=== PATIENT | female | born 1980 | race Caucasian/White ===

== ENCOUNTER 2022-07-19 17:50 | Emergency (ER) | payer MEDICAID, SELFPAY ==
[2022-07-19 17:58] VITALS: BP 170/90; PULSE 66; RESP 18; TEMP 36.4; O2SAT 100; BMI 38.4
--- NOTE | 2022-07-19 19:15 | ED_ITS ---
HPI - Extremity Injury (Upper) General Chief Complaint: Extremity Pain/Injury, Upper Stated Complaint: L knee pain, hand injury Time Seen by Provider: 07/19/22 18:03 History of Present Illness HPI narrative: 42-year-old woman presenting to the emergency department with approximately 1 we ek of increasing left forearm area pain. She notes pain in the lateral elbow area and seems to radiate up and down the forearm into the 3rd finger. She does not report any particular trauma. I do inquire further about what work she has been doing or different activities and does endorse doing a lot of pressure washing beginning about 2 weeks ago. She is left-hand dominant. Ibuprofen does take a little bit of the edge off. Any movement really seems to cause pain. Hard to find a comfortable position. Sleep has been poor due to pain. Review of records notes a history of low back pain. She later mentions that has had some left knee discomfort as well and some swelling noting bucket-handle u-shaped meniscal tear is what it sounds like. Has had effusion drained it appears in the past. This is a minor complaint upon presentation today. Related Data Previous Rx's Medication Instructions Recorded hydrocodone 5 mg-acetaminophen 325 1 - 2 tab PO Q4-6H PRN pain #10 07/19/22 mg tablet tabs prednisone 20 mg tablet See Rx Instructions .Route 07/19/22 .COMPLEX #18 tabs Allergies Allergy/AdvReac Type Severity Reaction Status Date / Time adhesive tape Allergy Mild Rash Verified 07/19/22 18:02 Review of Systems Status of ROS: Reports: 6 or more systems reviewed and unremarkable except as noted in History and below PFSH PFS Social History 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: Heavy tobacco smoker What tobacco products do you use: cigarettes Smoking packs per day: 1 Smoking cigarettes per day: 20.0 Years smoked: 30 Smoking pack-years: 30.00 Do you use any of these nicotine containing products: None Second hand tobacco smoke exposure: No How often do you have a drink containing alcohol: never AUDIT-C Alcohol total score: 0 Non-prescribed substance use: marijuana (any form) service: No Exam Narrative: Exam Narrative: Favoring the left arm. Seems uncomfortable. Breathing easily. Not demonstrating excessively in pain. Neck is supple. No apparent discomfort to rotation of shoulder in observation. Examination of the elbow is without swelling. No medial epicondylar tenderness. No ulnar groove area tenderness. Significant tenderness to palpation frankly pain, over the lateral epicondyle and distally into the extensor muscles. Pain is elicited with opening her hand. 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 Intact sensation and good pulses peripherally. Resisted supination causes a great deal of pain. Const: Vital Signs, click to edit/add: Vital Signs - 24 hr 07/19/22 17:58 Temperature 97.6 F Pulse Rate [Pulse Oximeter] 66 Respiratory Rate 18 Blood Pressure [Ri t Upper Arm] 170/90 H Pulse Oximetry 100 Oxygen Delivery Me thod Room Air Documenting provider has reviewed patient's vital signs: yes Course Vital Signs Vital signs: Initial Vital Signs Temperature 97.6 F 07/19/22 17:58 Temperature Source Temporal Artery Scan 07/19/22 17:58 Pulse Rate 66 07/19/22 17:58 Respiratory Rate 18 07/19/22 17:58 Blood Pressure 170/90 H 07/19/22 17:58 Blood Pressure Mean 116 H 07/19/22 17:58 Blood Pressure Position Sitting 07/19/22 17:58 Pulse Oximetry 100 07/19/22 17:58 Oxygen Delivery Method Room Air 07/19/22 17:58 Vital Signs Temperature 97.6 F 07/19/22 17:58 Pulse Rate 66 07/19/22 17:58 Respiratory Rate 18 07/19/22 17:58 Blood Pressure 170/90 H 07/19/22 17:58 Pulse Oximetry 100 07/19/22 17:58 Oxygen Delivery Method Room Air 07/19/22 17:58 Temperature 97.6 F 07/19/22 17:58 Pulse Rate 66 07/19/22 17:58 Respiratory Rate 18 07/19/22 17:58 Blood Pressure 170/90 H 07/19/22 17:58 Pulse Oximetry 100 07/19/22 17:58 Oxygen Delivery Method Room Air 07/19/22 17:58 MDM - Extremity Injury (Upper) MDM Narrative Medical decision making narrative: On physical exam appears clear that has lateral epicondylitis. Without more traumatic event and not sure warrants imaging i.e. for avulsion. Discussed outpatient management. She would appreciate pain medicine for departure when I discuss options. Place in arm sling for comfort. See patient discharge plan. Due to restriction to a particular pharmacy medications are rewritten for that pharmacy. No recent concerning prescriptions upon [facility] Medical Records Attestation: I reviewed the patient's medical records. Discharge Plan Discharge Clinical Impression: Epicondylitis, lateral Patient Disposition: Home, Self-Care Condition: Stable Additional Instructions: Just because it hurts to move your arm, maybe you would be helped by wearing this arm sling for support and partly to be reminded not to move your arm too much, over this next week. Generally I would avoid grasping or lifting anything more than 3, maybe 5 lb. over this next week. Please call to your primary care provider to be seen sometime this next week. Might need to modify some work restrictions or get moving toward physical therapy. Prescription for forearm strap. I would wear this regularly over the next week or 2, at least any time you might be trying to use your arm. See printout on exercises/rehabilitation. 11 Tennis Elbow Exercises For Physical Therapy & Pain Relief (https_[employer]) read://[email or web address]%[email or web address]-[email or web address] -exercises-[email or web address] had a little trouble printing above -- can search this yourself. My colleague is recommending the Peña Pro for rehabilitation. I am not sure about coverage on this and it seems somewhat expensive but maybe some use ones are out there. It looks to me like a sort of TENS unit. Can discuss this further with your primary care provider. As I said might benefit from physical therapy. Sometimes steroid injections are helpful. You could also follow-up with Orthopedics. Phone number [phone] norco and Prednisone from [employer]. Otherwise as baseline would take up to 800 mg of ibuprofen 3 times a day with a little food or alternative to that would be up to 500 mg naproxen 2 times daily also maybe with a little food. Take the prednisone as 60 mg daily for 3 days, then 40 mg daily for 4 days, then 20 mg daily for 2 days. Prescriptions: New prednisone 20 mg tablet See Rx Instructions .ROUTE .COMPLEX Qty: 18 0RF Rx Instructions: Take 60 mg daily days 1 - 3, 40 mg days 4 - 6, 20 mg days 7 - 9 hydrocodone-acetaminophen 5-325 mg tablet 1 - 2 tab PO Q4-6H PRN (Reason: pain) Qty: 10 0RF Stand Alone Forms: [facility] Info Instructions
== END 2022-07-19 19:00 | disposition home or self-care (01) ==
PROVIDERS: Emergency Provider Family Medicine; PCP Physician Assistant
DX: M77.12 Lateral epicondylitis, left elbow (principal)
CPT/HCPCS: 99283

== ENCOUNTER 2022-09-24 11:34 | Emergency (ER) | payer MEDICAID, SELFPAY ==
[2022-09-24 11:37] VITALS: BP 171/117; PULSE 65; RESP 18; TEMP 36.9; O2SAT 97; BMI 35.4
--- NOTE | 2022-09-24 11:45 | ED.GENADULT ---
HPI - General Adult General Chief complaint: Extremity Pain/Injury, Upper Stated complaint: Left hand injury Time Seen by Provider: 09/24/22 11:38 History of Present Illness HPI narrative: Shanika is a 42 year white female who was doing a lot a lifting with her left hand, has had pain in her hand. She describes it in her wrist and in her volar surface of her hand. She has had no trauma significantly that would break a bone or have other abnormality in that regard. No fevers chills no redness or warmth. Patient has a complex medical history including chronic pain syndrome insomnia major depression COPD and a history of chemical dependency Related Data Home Medications Medication Instructions Recorded Confirmed sertraline 100 mg tablet 100 mg PO QDAY 09/15/22 09/15/22 Previous Rx's Medication Instructions Recorded albuterol sulfate 90 mcg/actuation 2 puff inhalation QID PRN 08/29/22 aerosol inhaler shortness of breath or wheezing #8.5 grams fluticasone 250 mcg-salmeterol 50 1 inh inhalation BID #60 ea 08/29/22 mcg/dose blistr powdr for inhalation (Advair Diskus) gabapentin 300 mg capsule 300 mg PO TID #90 caps 08/29/22 oxybutynin chloride 10 mg 10 mg PO QDAY #30 tabs 08/29/22 tablet,extended release 24 hr trazodone 150 mg tablet 150 mg PO QHS #30 tabs 08/29/22 ketorolac 10 mg tablet 10 mg PO Q8H PRN pain #10 tabs 09/24/22 methylprednisolone 4 mg tablets in See Rx Instructions PO .COMPLEX 09/24/22 a dose pack (Medrol (Raffy)) #21 ea Allergies Allergy/AdvReac Type Severity Reaction Status Date / Time nitrofurantoin Allergy Severe Swelling Verified 09/24/22 11:37 [From Macrobid] of Lip/Tongue/Throat adhesive tape Allergy Mild Rash Verified 09/24/22 11:37 [facility] Medical History (Updated 09/24/22 @ 11:49 by Aftab Brock MD) History of abnormal cervical Pap smear (07/13/20) ?Z87.42 - Personal history of other diseases of the female genital tract (ICD-10) Chronic constipation ?K59.09 - Other constipation (ICD-10) Seasonal allergies ?J30.2 - Other seasonal allergic rhinitis (ICD-10) Anxiety ?F41.9 - Anxiety disorder, unspecified (ICD-10) Thyroid nodule ?E04.1 - Nontoxic single thyroid nodule (ICD-10) History of kidney stones ?Z87.442 - Personal history of urinary calculi (ICD-10) Chronic pain syndrome ?G89.4 - Chronic pain syndrome (ICD-10) Insomnia ?G47.00 - Insomnia, unspecified (ICD-10) Overactive bladder ?N32.81 - Overactive bladder (ICD-10) History of drug overdose ?Z91.89 - Other specified personal risk factors, not elsewhere classified (ICD-10) History of methamphetamine abuse ?F15.11 - Other stimulant abuse, in remission (ICD-10) Major depression, recurrent ?F33.9 - Major depressive disorder, recurrent, unspecified (ICD-10) COPD (chronic obstructive pulmonary disease) ?J44.9 - Chronic obstructive pulmonary disease, unspecified (ICD-10) Surgical History (Updated 09/08/22 @ 15:36 by Keisha Azul) History of appendectomy ?Z90.49 - Acquired absence of other specified parts of digestive tract (ICD-10) History of female sterilization ?Z98.890 - Other specified postprocedural states (ICD-10) History of hysterectomy (08/10/20) ?Z90.710 - Acquired absence of both cervix and uterus (ICD-10) History of bladder surgery (01/01/20) ?Z98.890 - Other specified postprocedural states (ICD-10) Hx of total hip arthroplasty ?Z96.649 - Presence of unspecified artificial hip joint (ICD-10) Family History (Updated 09/08/22 @ 13:26 by Keisha Azul) Mother Rheumatoid arthritis High blood pressure Ovarian cancer, Onset Age: 45 Psychiatric disorder Sister Diabetes Hypothyroidism Ovarian cancer Asthma Breast cancer, Onset Age: 38 Psychiatric disorder Thyroid disease Social History (Updated 08/29/22 @ 00:11 by Jorge Alberto Mora MD) 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: , 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, 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, 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 What tobacco products do you use: cigarettes Smoking packs per day: 1 Smoking cigarettes per day: 20.0 Years smoked: 30 Smoking pack-years: 30.00 Do you use any of these nicotine containing products: None Second hand tobacco smoke exposure: No How often do you have a drink containing alcohol: never AUDIT-C Alcohol total score: 0 Non-prescribed substance use: marijuana (any form) Little interest or pleasure in doing things: several days Feeling down, depressed, or hopeless: more than half the days service: No Exam Narrative: Exam Narrative: Objective: Patient's vital signs look unremarkable other than she has elevated blood pressure This will be repeated Left hand shows limited range of motion due to just generalized discomfort. No point tenderness, no redness or warmth erythema distal CMS appears intact, she is peers have a small ganglion her anterior lateral wrist. Const: Vital Signs, click to edit/add: Vital Signs - 24 hr 09/24/22 11:37 Temperature 98.5 F Pulse Rate [Right Pulse Oximeter] 65 Respiratory Rate 18 Blood Pressure [Ri ght Upper Arm] 171/117 H Pulse Oximetry 97 Oxygen Delivery Me thod Room Air Course Vital Signs Vital signs: Initial Vital Signs Temperature 98.5 F 09/24/22 11:37 Temperature Source Temporal Artery Scan 09/24/22 11:37 Pulse Rate 65 09/24/22 11:37 Pulse Rhythm Regular 09/24/22 11:37 Pulse Strength 3+ Normal 09/24/22 11:37 Respiratory Rate 18 09/24/22 11:37 Blood Pressure 171/117 H 09/24/22 11:37 Blood Pressure Mean 135 H 09/24/22 11:37 Blood Pressure Position Sitting 09/24/22 11:37 Pulse Oximetry 97 09/24/22 11:37 Oxygen Delivery Method Room Air 09/24/22 11:37 Vital Signs Temperature 98.5 F 09/24/22 11:37 Pulse Rate 65 09/24/22 11:37 Respiratory Rate 18 09/24/22 11:37 Blood Pressure 171/117 H 09/24/22 11:37 Pulse Oximetry 97 09/24/22 11:37 Oxygen Delivery Method Room Air 09/24/22 11:37 Temperature 98.5 F 09/24/22 11:37 Pulse Rate 65 09/24/22 11:37 Respiratory Rate 18 09/24/22 11:37 Blood Pressure 171/117 H 09/24/22 11:37 Pulse Oximetry 97 09/24/22 11:37 Oxygen Delivery Method Room Air 09/24/22 11:37 Medical Decision Making MDM Narrative Medical decision making narrative: Patient has left wrist and hand pain, I think this is from overuse, she reports she has had some trigger finger issues in the past. At this point I will give her Toradol orally and continue that at home, would also give her Medrol Dosepak I think that will help significantly. Will also give her a wrist splint long that will involve the forearm as well. Light activity, ice on a regular basis, follow-up with primary care in 2-3 days, return here sooner problems or concerns. Discharge Plan Discharge Clinical Impression: Hand pain, left Patient Disposition: Home, Self-Care Condition: Stable Additional Instructions: Ice aggressively perhaps 10 minutes on the wrist 3 to 5 times a day, wear the wrist splint daily and at night in a loose fashion to keep the wrist from bending, take the medications prescribed, follow-up with primary care doctor in next 2-3 days to make sure it is improving. Prescriptions: New ketorolac 10 mg tablet 10 mg PO Q8H PRN (Reason: pain) Qty: 10 0RF methylprednisolone [Medrol (Raffy)] 4 mg tablets,dose pack See Rx Instructions .ROUTE .COMPLEX Qty: 21 0RF Rx Instructions: orally per package directions No Action fluticasone propion-salmeterol [Advair Diskus] 250-50 mcg/dose blister with device 1 inh inhalation BID Qty: 60 2RF albuterol sulfate 90 mcg/actuation HFA aerosol inhaler 2 puff inhalation QID PRN (Reason: shortness of breath or wheezing) Qty: 8.5 5RF oxybutynin chloride 10 mg tablet extended release 24hr 10 mg PO QDAY Qty: 30 2RF trazodone 150 mg tablet 150 mg PO QHS Qty: 30 2RF gabapentin 300 mg capsule 300 mg PO TID Qty: 90 1RF sertraline 100 mg tablet 100 mg PO QDAY Follow Up/Referrals: Jorge Alberto Mora MD [Primary Care Provider] - Stand Alone Forms: [employer] Info Instructions
== END 2022-09-24 12:11 | disposition home or self-care (01) ==
LOC: ED 11:57
PROVIDERS: Emergency Provider Family Medicine; PCP Family Medicine
DX: M25.532 Pain in left wrist (principal); M70.842 Other soft tissue disorders related to use, overuse and pressure, left hand
CPT/HCPCS: 29125; 99283

== ENCOUNTER 2022-11-02 09:30 | Outpatient (CLI) | payer MEDICAID, SELFPAY | END 2022-11-02 09:31 | disposition home or self-care (01) | LOC: NFLDREF 16:59 | PROVIDERS: PCP Family Medicine; Referring Provider Family Medicine; Visit Provider Family Medicine | DX: R30.0 Dysuria (principal); R10.9 Unspecified abdominal pain; N39.0 Urinary tract infection, site not specified; K21.9 Gastro-esophageal reflux disease without esophagitis | CPT/HCPCS: 81015; 87086; 87186 ==

== ENCOUNTER 2022-11-02 10:20 | Outpatient (CLI) | payer MEDICAID, SELFPAY ==
--- NOTE | 2022-11-02 11:30 | CRLHL7_ITS ---
For Patients: As a result of the Century Cures Act, medical imaging exams and procedure reports are released immediately into your electronic medical record. You may view this report before your referring provider. If you have questions, please contact your health care provider. Indication: ABDOMINAL PAIN. POSSIBLE KIDNEY OR GALLSTONE Technique: Noncontrast CT abdomen and pelvis Please note that all CT scans at this facility use dose modulation, iterative reconstruction, and/or weight-based dosing when appropriate to reduce radiation dose to as low as reasonably achievable. Comparison: None Findings: 2.3 cm bleb within the right lung base. No pleural effusion. No free intraperitoneal air. Right total hip replacement hardware. Punctate stones are present within the kidneys bilaterally measuring up to 3 millimeters. No perinephric stranding. Normal ureters. Normal noncontrast enhanced liver. Gallbladder is incompletely distended. Spleen is normal. Normal adrenal glands and pancreas. Mild atherosclerotic changes. No aneurysm. No bladder stones. No pelvic soft tissue mass. Degenerative disc disease L5-S1 with disc space narrowing and spurring along with discogenic sclerosis and vacuum disc phenomenon. Impression: Numerous punctate stones within each kidney measuring up to 3 millimeters. No hydronephrosis or perinephric stranding. Normal ureters and bladder. Please note that all CT scans at this facility use dose modulation, iterative reconstruction, and/or weight-based dosing when appropriate to reduce radiation dose to as low as reasonably achievable. Dictated by Jorge Alberto Faith MD @ 11/02/2022 3:53:05 PM (Electronically Signed)
== END 2022-11-02 10:21 | disposition home or self-care (01) ==
PROVIDERS: PCP Family Medicine; Visit Provider Family Medicine
DX: R10.9 Unspecified abdominal pain (principal); N20.0 Calculus of kidney
CPT/HCPCS: 74176

== ENCOUNTER 2022-11-07 12:52 | Emergency (ER) | payer MEDICAID, SELFPAY ==
[2022-11-07 13:15] VITALS: BP 174/105; PULSE 58; RESP 20; TEMP 36.2; O2SAT 100; BMI 32.5
[2022-11-07 13:42] LABS: Appearance Urine Clear (Clear); Bilirubin Urine Negative (Negative); Blood Urine 3+ (Negative); Color Urine Yellow (Yellow); Glucose Urine Negative (Negative); Ketones Urine Negative (Negative); Leukocyte Esterase Urine Negative (Negative); Nitrite Urine Negative (Negative); Protein Urine Negative (Negative); Urobilinogen Urine 0.2 (0.2-1.0)
[2022-11-07 13:49] LABS: Squamous Epithelial Cell Urine Few (None-Few); WBC Urine 0-2 (0-5)
--- NOTE | 2022-11-07 16:15 | ED.GENADULT ---
HPI - General Adult General Chief complaint: Abdominal Pain Stated complaint: severe abdominal pain Time Seen by Provider: 11/07/22 16:14 History of Present Illness HPI narrative: Pt seen in clinic last Monday. CT scan done and dx'd with UTI. Pain medication no longer helping. LEFT kidney pain and right upper quadrant pain. States kidney and gallbladder problems. Diarrhea x 1 week. 42-year-old woman presenting to the emergency department with complaint of continued left flank area pain and continued right upper abdominal pain. Was diagnosed with a urinary tract infection on clinic evaluation and a given a week of ciprofloxacin. Admittedly she is no longer having dysuria but she says that her kidney should not still hurt. It is just persistent. She has also had continued right upper quadrant pain. Says she tries to eat anything she gets a lot of pain. Can not handle any oral ingestion. Nausea but can vomit. No longer has a fever but apparently did get up to [address] scan a week ago documented numerous punctate kidney stones and no evidence of pyelonephritis. Urine culture grew out pansensitive E coli. She has also had a week of diarrhea. Says she was given Oxy something for pain. Says that it does not really help and just makes her sleepy and she does not really like it. Imaging did not show ureteral stone By the time I am seeing Ms. Farrell home urinalysis been resulted showing 3+ blood and 5-10 red cells on microscopic no other indication of infection. Related Data Home Medications Medication Instructions Recorded Confirmed sertraline 100 mg tablet 100 mg PO QDAY 09/15/22 11/07/22 Previous Rx's Medication Instructions Recorded albuterol sulfate 90 mcg/actuation 2 puff inhalation QID PRN 08/29/22 aerosol inhaler shortness of breath or wheezing #8.5 grams fluticasone 250 mcg-salmeterol 50 1 inh inhalation BID #60 ea 08/29/22 mcg/dose blistr powdr for inhalation (Advair Diskus) gabapentin 300 mg capsule 300 mg PO TID #90 caps 08/29/22 oxybutynin chloride 10 mg 10 mg PO QDAY #30 tabs 08/29/22 tablet,extended release 24 hr trazodone 150 mg tablet 150 mg PO QHS #30 tabs 08/29/22 ciprofloxacin HCl 500 mg tablet 500 mg PO BID #14 tabs 11/02/22 omeprazole 20 mg capsule,delayed 20 mg PO QDAY #30 caps 11/02/22 release oxycodone 5 mg tablet 5 mg PO TID PRN pain #20 tabs 11/02/22 Allergies Allergy/AdvReac Type Severity Reaction Status Date / Time nitrofurantoin Allergy Severe Swelling Verified 11/07/22 13:21 [From Macrobid] of Lip/Tongue/Throat adhesive tape Allergy Mild Rash Verified 11/07/22 13:21 Review of Systems Status of ROS: Reports: 6 or more systems reviewed and unremarkable except as noted in History and below [facility] Medical History GERD (gastroesophageal reflux disease) ?K21.9 - Gastro-esophageal reflux disease without esophagitis (ICD-10) History of abnormal cervical Pap smear (07/13/20) ?Z87.42 - Personal history of other diseases of the female genital tract (ICD-10) Chronic constipation ?K59.09 - Other constipation (ICD-10) Seasonal allergies ?J30.2 - Other seasonal allergic rhinitis (ICD-10) Anxiety ?F41.9 - Anxiety disorder, unspecified (ICD-10) Thyroid nodule ?E04.1 - Nontoxic single thyroid nodule (ICD-10) History of kidney stones ?Z87.442 - Personal history of urinary calculi (ICD-10) Chronic pain syndrome ?G89.4 - Chronic pain syndrome (ICD-10) Insomnia ?G47.00 - Insomnia, unspecified (ICD-10) Overactive bladder ?N32.81 - Overactive bladder (ICD-10) History of drug overdose ?Z91.89 - Other specified personal risk factors, not elsewhere classified (ICD-10) History of methamphetamine abuse ?F15.11 - Other stimulant abuse, in remission (ICD-10) Major depression, recurrent ?F33.9 - Major depressive disorder, recurrent, unspecified (ICD-10) COPD (chronic obstructive pulmonary disease) ?J44.9 - Chronic obstructive pulmonary disease, unspecified (ICD-10) Surgical History History of appendectomy ?Z90.49 - Acquired absence of other specified parts of digestive tract (ICD-10) History of female sterilization ?Z98.890 - Other specified postprocedural states (ICD-10) History of hysterectomy (08/10/20) ?Z90.710 - Acquired absence of both cervix and uterus (ICD-10) History of bladder surgery (01/01/20) ?Z98.890 - Other specified postprocedural states (ICD-10) Hx of total hip arthroplasty ?Z96.649 - Presence of unspecified artificial hip joint (ICD-10) Family History Mother Rheumatoid arthritis High blood pressure Ovarian cancer, Onset Age: 45 Psychiatric disorder Sister Diabetes Hypothyroidism Ovarian cancer Asthma Breast cancer, Onset Age: 38 Psychiatric disorder Thyroid disease 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: , 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, 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 Grayish skin. Curled up had fallen asleep. Overweight. Larger stature. Lungs with diffuse squeaks and crepitus consistent with diagnosis of COPD. She is not in any respiratory distress. Heart in a regular rate and rhythm. Examination of the abdomen is with severe apparent pain to palpation the right upper abdomen. It not really Lennon's positive. The left flank to light touch also with demonstrative response indicating severe pain. Skin otherwise is warm and dry without rashes. Extremities are without edema. Well-perfused. Const: Vital Signs, click to edit/add: Vital Signs - 24 hr 11/07/22 13:15 Temperature 97.1 F L Pulse Rate [Pulse Oximeter] 58 L Respiratory Rate 20 Blood Pressure [Ri ght Upper Arm] 174/105 H Pulse Oximetry 100 Oxygen Delivery Me thod Room Air Documenting provider has reviewed patient's vital signs: yes Course Vital Signs Vital signs: Initial Vital Signs Temperature 97.1 F L 11/07/22 13:15 Temperature Source Temporal Artery Scan 11/07/22 13:15 Pulse Rate 58 L 11/07/22 13:15 Pulse Rhythm Regular 11/07/22 13:15 Pulse Strength 3+ Normal 11/07/22 13:15 Respiratory Rate 20 11/07/22 13:15 Blood Pressure 174/105 H 11/07/22 13:15 Blood Pressure Mean 128 H 11/07/22 13:15 Blood Pressure Position Sitting 11/07/22 13:15 Pulse Oximetry 100 11/07/22 13:15 Oxygen Delivery Method Room Air 11/07/22 13:15 Vital Signs Temperature 97.1 F L 11/07/22 13:15 Pulse Rate 58 L 11/07/22 13:15 Respiratory Rate 20 11/07/22 13:15 Blood Pressure 174/105 H 11/07/22 13:15 Pulse Oximetry 100 11/07/22 13:15 Oxygen Delivery Method Room Air 11/07/22 13:15 Temperature 97.1 F L 11/07/22 13:15 Pulse Rate 58 L 11/07/22 13:15 Respiratory Rate 20 11/07/22 13:15 Blood Pressure 174/105 H 11/07/22 13:15 Pulse Oximetry 100 11/07/22 13:15 Oxygen Delivery Method Room Air 11/07/22 13:15 Medical Decision Making MDM Narrative Medical decision making narrative: At this point be prudent I think to examine for gallbladder/hepatitic disease. could certainly be an aseptic cystitis. underlying history of chronic pain concerns complicating. Could be passing a kidney stone. Initiating IV fluids. Given ketorolac and Zofran. Was able to sleep in the emergency department. CRP was somewhat elevated. Urinalysis with some blood but no other evidence of infection. White count is slightly elevated. Overall improved and would like to return home. Perhaps there is some residual inflammation since infection. Perhaps vomiting has contributed to some upper abdominal pain generally. She does have numerous punctate kidney stones; perhaps 1 of these has passed. See patient discharge plan Lab Data Lab results reviewed: Yes I reviewed the patient's lab results Labs: Lab Results 11/07/22 11/07/22 Range/Units 13:24 17:39 WBC 11.80 H (4.50-11.00) K/uL RBC 5.16 (4.00-5.20) m/uL Hgb 15.3 (12.0-16.0) gm/dL Hct 46.7 (33.0-51.0) % MCV 91 (80-100) fL MCH 30 (26-34) pg MCHC 33 (32-36) gm/dL RDW Coeff of Alexander 13.7 (11.5-15.5) % Plt Count 392 (140-440) K/uL Neut % (Auto) 58.7 (42.0-72.0) % Lymph % (Auto) 31.6 (20-44) % Stevens % (Auto) 5.0 (0.0-11.0) % Eos % (Auto) 4.0 (0.0-7.0) % Baso % (Auto) 0.4 (0.0-3.0) % Neut # (Auto) 6.90 (1.7-7.0) K/uL Lymph # (Auto) 3.70 H (0.90-2.90) K/uL Stevens # (Auto) 0.60 (0.00-0.90) K/UL Eos # (Auto) 0.50 (0.00-0.50) K/uL Baso # (Auto) 0.00 (0.00-0.30) K/uL Abs Immat Gran (auto) 0.00 (0.00-0.30) K/uL Imm/Tot Granulo (auto) 0.3 % Sodium 140 (135-149) mmol/L Potassium 3.5 L (3.6-5.1) mmol/L Chloride 103 (96-114) mmol/L Carbon Dioxide 31 (20-32) mmol/L BUN 8 (5-24) mg/dL Creatinine 0.8 (0.5-1.5) mg/dL Estimated Creat Clear 95.74 Estimated GFR 94 ml/min Glucose 93 (60-115) mg/dL Lactate 1.1 (0.5-1.9) mmol/L Calcium 8.9 (8.4-10.6) mg/dL Total Bilirubin 0.4 (0.1-1.5) mg/dL Direct Bilirubin 0.1 (0.0-0.5) mg/dL AST 19 (12-35) U/L ALT 15 (4-35) U/L Alkaline Phosphatase 73 (40-150) U/L C-Reactive Protein 3.3 H (0.5-1.0) mg/dL Total Protein 7.7 (6.0-8.3) g/dL Albumin 4.1 (3.3-5.0) g/dL Lipase 81 (23-300) U/L Urine Color Yellow (Yellow) Urine Appearance Clear (Clear) Urine pH 7.0 (5.0-8.5) Ur Specific Granby 1.020 (1.000-1.030) Urine Protein Negative (Negative) Urine Glucose (UA) Negative (Negative) Urine Ketones Negative (Negative) Urine Blood 3+ A (Negative) Urine Nitrite Negative (Negative) Urine Bilirubin Negative (Negative) Urine Urobilinogen 0.2 (0.2-1.0) Ur Leukocyte Esterase Negative (Negative) Urine RBC 5-10 A (0-2) Urine WBC 0-2 (0-5) Ur Squamous Epith Cells Few (None-Few) Urine Bacteria None (None) Discharge Plan Discharge Clinical Impression: Right upper quadrant abdominal pain, Hematuria, Flank pain Patient Disposition: Home w/ Parent or Adult Condition: Improved Additional Instructions: It is certainly possible you're passing a tiny kidney stone. I am not sure the cause of your right upper quadrant pain. Your labs are reassuring in this regard. Focus on hydration with water. Might even strain your urine over this next week. Can take ketorolac from [facility]. Phenazopyridine (AZO) might also be helpful. Either can be combined with the oxycodone you have remaining. Be seen for pain lasting 5 days, uncontrolled pain, associated fever, intractable vomiting. Prescriptions: No Action fluticasone propion-salmeterol [Advair Diskus] 250-50 mcg/dose blister with device 1 inh inhalation BID Qty: 60 2RF albuterol sulfate 90 mcg/actuation HFA aerosol inhaler 2 puff inhalation QID PRN (Reason: shortness of breath or wheezing) Qty: 8.5 5RF oxybutynin chloride 10 mg tablet extended release 24hr 10 mg PO QDAY Qty: 30 2RF trazodone 150 mg tablet 150 mg PO QHS Qty: 30 2RF gabapentin 300 mg capsule 300 mg PO TID Qty: 90 1RF sertraline 100 mg tablet 100 mg PO QDAY ciprofloxacin HCl 500 mg tablet 500 mg PO BID Qty: 14 0RF oxycodone 5 mg tablet 5 mg PO TID PRN (Reason: pain) Qty: 20 0RF omeprazole 20 mg capsule,delayed release(DR/EC) 20 mg PO QDAY Qty: 30 5RF Follow Up/Referrals: Jorge Alberto Mora MD [Primary Care Provider] - Stand Alone Forms: Clear Standards Info Instructions
--- NOTE | 2022-11-07 17:27 | CRLHL7_ITS ---
For Patients: As a result of the Century Cures Act, medical imaging exams and procedure reports are released immediately into your electronic medical record. You may view this report before your referring provider. If you have questions, please contact your health care provider. Indication: Abdominal pain. History of kidney stones. Technique: Sonography of the abdomen was performed limited to the structures discussed below Comparison: Portions of a CT dated November 02, 2022. No prior ultrasounds for comparison. Findings: The liver measures 18.3 centimeters. There is no focal mass or biliary ductal dilation. Echogenicity is overall normal. Gallbladder wall thickness is normal. No sludge, calculus or pericholecystic fluid collection. The gallbladder wall is 2.5 millimeters which is normal The common duct measures 4 millimeters which is normal The pancreas as visualized appears normal. Portions are obscured by bowel gas. The aorta and cava appear normal. The right kidney measures 12.3 x 5.0 x 4.9 centimeters and the left kidney measures 12.5 x 6.4 x 6.6 centimeters. No hydronephrosis, mass or perinephric collection. The stones present on the CT are not well demonstrated on the ultrasound. Impression: 1. The gallbladder appears normal. No intra or extrahepatic biliary ductal dilation. The liver is mildly enlarged but otherwise unremarkable. 2. Normal appearing pancreas. 3. Kidneys normal in size. No hydronephrosis or mass. The small calculi visible on the CT are poorly demonstrated by sonography Dictated by Agapito Mcdonald MD @ 11/07/2022 6:42:58 PM (Electronically Signed)
[2022-11-07] MEDS: 0.9 % SODIUM CHLORIDE 1000 ml 1,000 ML IV (17:42)
[2022-11-07] MEDS: KETOROLAC 30 MG/ML inj IVP (17:43)
[2022-11-07] MEDS: ONDANSETRON 2 MG/ML inj 4 MG IVP (17:43)
[2022-11-07 17:54] LABS: Lactate* 1.1 mmol/L (0.5-1.9)
[2022-11-07 17:56] LABS: Basophils Percent Auto 0.4 % (0.0-3.0); Hematocrit 46.7 % (33.0-51.0); Hemoglobin* 15.3 gm/dL (12.0-16.0); Immature Granulocytes Pct Auto 0.3 %; Lymphocytes Percent Auto 31.6 % (20-44); Mean Corpuscular HGB Conc 33 gm/dL (32-36); Mean Corpuscular Hemoglobin 30 pg (26-34); Mean Corpuscular Volume 91 fL (80-100); Neutrophils Percent Auto 58.7 % (42.0-72.0); Platelet Count* 392 K/uL (140-440); RDW Coefficient of Variation % 13.7 % (11.5-15.5); Red Blood Count 5.16 m/uL (4.00-5.20)
[2022-11-07 17:58] LABS: Slide Review Reflex No
[2022-11-07 18:09] LABS: Albumin* 4.1 g/dL (3.3-5.0)
[2022-11-07 18:10] LABS: Chloride* 103 mmol/L (96-114); Potassium* 3.5 mmol/L (3.6-5.1); Sodium* 140 mmol/L (135-149)
[2022-11-07 18:12] LABS: Alkaline Phosphatase* 73 U/L (40-150); Aspartate Amino Transferase* 19 U/L (12-35); Bilirubin Direct* 0.1 mg/dL (0.0-0.5); Bilirubin Total* 0.4 mg/dL (0.1-1.5); Lipase* 81 U/L (23-300); Total Protein* 7.7 g/dL (6.0-8.3)
[2022-11-07 18:13] LABS: Alanine Aminotransferase* 15 U/L (4-35); Creatinine* 0.8 mg/dL (0.5-1.5); Est. Creatinine Clearance* 95.74; Estimated Glomerular Filt Rate 94 ml/min
[2022-11-07 18:14] LABS: Blood Urea Nitrogen* 8 mg/dL (5-24); Calcium* 8.9 mg/dL (8.4-10.6); Carbon Dioxide* 31 mmol/L (20-32); Glucose* 93 mg/dL (60-115)
[2022-11-07 18:17] LABS: C Reactive Protein* 3.3 mg/dL (0.5-1.0)
== END 2022-11-07 20:45 | disposition home or self-care (01) ==
PROVIDERS: Emergency Provider Family Medicine; PCP Family Medicine
DX: R10.11 Right upper quadrant pain (principal)
CPT/HCPCS: 36415; 76700; 80048; 80076; 81003; 81015; 83605; 83690; 85025; 86140; 96361; 96374; 96375; 99284; J1885; J2405; J7030

== ENCOUNTER 2023-02-07 13:39 | Outpatient (CLI) | payer MEDICAID, SELFPAY ==
--- NOTE | 2023-02-07 13:45 | MR_ITS ---
[address] [address] Phone:?[phone] Fax:?[phone] Referring Physician Information: Jani Bennett [address] [facility] [address] Phone:?[phone] Fax:?[phone] Patient:Edelmira Rhodes D.O.B:?1980 Sex:?Female Phone:? [facility] MRN:?[id number] Exam Date:?02/07/2023 EXAM: MRI of the LEFT KNEE, without contrast CLINICAL: Unspecified symptoms involving the left knee. COMPARISONS: X-rays dated 08/05/2022. TECHNICAL: Multiplanar multisequence MRI of the left knee was obtained. SEDATION: None. CONTRAST: None. FINDINGS: Ligaments: ACL: Intact and unremarkable. PCL: Intact and unremarkable. MCL: Intact and unremarkable. LCL: Intact and unremarkable. Posterolateral corner: Popliteus, biceps femoris, iliotibial band, and the popliteofibular ligament appear intact. Posteromedial corner: Semimembranosus, pes anserine tendons and posterior oblique ligament appear intact. Extensor mechanism: Patellar tendon: Intact, without tendinopathy. Quadriceps tendon: Intact, without tendinopathy. Retinacula: Medial and lateral retinacula are intact. Fat pads: Unremarkable infrapatellar Hoffa's, quadriceps and prefemoral fat pads. Patellofemoral joint: Patella: Grade 2-3 chondral loss is seen to involve the lateral facet extending into the patellar median ridge. Focal deep chondral fissure involving the medial patellar facet on axial series 4 image 8. Trochlea: There is mild chondral heterogeneity and mild chondral thinning involving the trochlea. No full-thickness chondral defects. Medial compartment: Medial meniscus: No evidence of discrete meniscal tear or meniscal displacement. Medial cartilage: High-grade/full-thickness chondral loss involves the weightbearing medial femoral condyle adjacent to the posterior horn medial meniscus on sagittal series 6 images 9-11. Medial tibial plateau cartilage is preserved. Lateral compartment: Lateral meniscus: Mild ill-defined fraying/tearing involving the posterior root on sagittal series 6 images 18-20. Lateral meniscus otherwise appears intact. No meniscal displacement. Lateral cartilage: There is heterogeneity of the lateral tibial plateau cartilage. Small segment of grade 2 chondral loss involves the posterior lateral tibial plateau. Segment of high-grade chondral loss involves the posterior nonweightbearing lateral femoral condyle on axial series 4 images 12-13. Knee joint: Effusion: Small left knee effusion. Intra-articular bodies:?No convincing bodies identified. Popliteal cyst: None. Bones: No suspicious bone marrow signal alteration or fracture line. IMPRESSION: 1. Mild ill-defined fraying/tearing involving the posterior root lateral meniscus. Menisci otherwise appear intact. 2. Tricompartmental chondromalacia/chondral loss as above. 3. Small joint effusion. 4. No evidence of ligamentous injury or fracture. JCZ Electronically signed on 02/08/2023 8:13:00 AM by Landon Gerard D.O.
--- NOTE | 2023-02-07 14:30 | MR_ITS ---
[address] [address] Phone:?[phone] Fax:?[phone] Referring Physician Information: Jani Bennett [address] [facility] [address] Phone:?[phone] Fax:?[phone] Patient:Edelmira Rhodes D.O.B:?1980 Sex:?Female Phone:? [facility] MRN:?[id number] Exam Date:?02/07/2023 EXAM: MRI of the RIGHT SHOULDER, without contrast CLINICAL: Right shoulder pain. COMPARISONS: None available. TECHNICAL: Multiplanar multisequence MRI of the right shoulder was obtained. SEDATION: None. CONTRAST: None. FINDINGS: Rotator cuff: Supraspinatus/Infraspinatus: There is mild thin linear partial interstitial insertional tearing of the distal supraspinatus tendon on coronal series 4 image 17-18. Infraspinatus tendon appears unremarkable. No significant fatty atrophy of the muscle bellies. Teres minor: No tendinosis, tear or atrophy. Subscapularis: Mild tendinosis of the distal tendon. No significant fatty atrophy of the muscle belly. Bursae: Subacromial-subdeltoid: Minimal bursal edema. Subcoracoid: No significant bursal fluid. Coracoacromial arch: Acromion morphology: Type II. No os acromiale. Acromiohumeral space: Within normal limits. Coracohumeral space: Within normal limits. Biceps tendon, long head: Intraarticular and extraarticular segments intact without rupture, tendinopathy or displacement. Glenohumeral joint: Physiologic volume of joint fluid. Articular cartilage: There is high-grade/full-thickness chondral loss seen to involve the superomedial humeral head on coronal series 4 images 20-22. Grade 2 chondral thinning involves the glenoid. Capsule: There is mild thickening of the inferior glenohumeral ligament. No capsular disruption. Labrum: There is tearing of the superior labrum seen on coronal series 4 images 19-22. Remainder of the glenoid labrum is unremarkable. No perilabral cyst identified. Bones: No evidence of osseous fracture. Please see below for findings involving the AC joint. Acromioclavicular joint: There are moderate degenerative hypertrophic changes involving the AC joint with prominent reactive marrow edema involving the distal clavicle and acromion about the AC joint. No AC joint widening. IMPRESSION: 1. Mild thin linear partial interstitial insertional tearing of the distal supraspinatus tendon. Mild tendinosis of the subscapularis tendon. 2. Tearing of the superior labrum. 3. High-grade/full-thickness chondral loss involving the superomedial humeral head with grade 2 chondral thinning involving the glenoid. 4. Mild thickening of the inferior glenohumeral ligament which may reflect capsular redundancy but also can be seen in patients with adhesive capsulitis, recommend close clinical correlation. 5. Moderate degenerative hypertrophic changes involving the AC joint with prominent reactive marrow edema involving the distal clavicle and acromion about the AC joint. JCZ Electronically signed on 02/08/2023 8:40:00 AM by Landon Gerard D.O.
== END 2023-02-07 13:40 | disposition home or self-care (01) ==
LOC: MRI 13:40
PROVIDERS: PCP Family Medicine; Visit Provider Physician Assistant
DX: M25.511 Pain in right shoulder (principal); M75.101 Unspecified rotator cuff tear or rupture of right shoulder, not specified as traumatic; M75.01 Adhesive capsulitis of right shoulder; M25.562 Pain in left knee; M94.262 Chondromalacia, left knee; M25.462 Effusion, left knee
CPT/HCPCS: 73221; 73721

== ENCOUNTER 2023-04-11 06:13 | Day surgery (SDC) | payer MEDICAID, SELFPAY ==
[2023-04-11] VITALS (11 sets, daily range): BP systolic 152–168; BP diastolic 90–103; PULSE 59–68; RESP 16–20; TEMP 36.7; O2SAT 97–99; BMI 35.7
[2023-04-11] MEDS: CEFAZOLIN 2 GM INJ IVP (06:02)
[2023-04-11] MEDS: LACTATED RINGERS 1000 ML 1,000 ML 35 ML IV (06:05)
[2023-04-11] MEDS: lidocaine HCL 2 % MULTIDOSE 20 ML VIAL 7 ML INJECTION (07:25)
[2023-04-11] MEDS: BUPIVACAINE 0.5% 30 ML 5 ML INJECTION (07:25)
[2023-04-11] MEDS: ETHYL CHLORIDE 1 APPLICATION 1 APPLIC TOPICAL (08:08)
--- NOTE | 2023-04-12 08:21 | PM.ORPRC ---
Procedure Note Date of procedure: 04/11/23 Procedure: Preop diagnosis: Right upper extremity de quervain's tenosynovitis Postop diagnosis: Right upper extremity de quervain's tenosynovitis Procedure: Right upper extremity 1st dorsal compartment release Anesthesia: Local Surgeon: Diallo Yadav MD acute care certified nursing assistant: VIKTOR Cote EBL: 5 mL Complications: None Specimens: None Drains: None Preoperative antibiotics: Ancef 2 g Indications: The patient has a history of right upper extremity de quervain's tenosynovitis symptoms. Despite appropriate nonoperative management consisting of bracing and occupational therapy they continue to have symptoms. Operative intervention was recommended. The risks, benefits alternatives and expected outcomes were discussed in detail. These included but were not limited to: Infection, bleeding, injury to blood vessel or nerve, venous thromboembolism. All questions were answered to their satisfaction. The patient was placed supine on the operating room table. Local anesthesia was established with 0.5% Marcaine without epinephrine and 2% lidocaine without epinephrine. The upper extremity was prepped and draped in usual sterile fashion. The limb was elevated the forearm pneumatic tourniquet was inflated to 250 mm of mercury. A longitudinal incision was made centered over the 1st dorsal compartment. Subcutaneous dissection was taken with tenotomy scissors to the 1st dorsal compartment. Branches of the radial sensory nerve were protected and retracted out of the field. The retinaculum over the 1st dorsal compartment was divided longitudinally. The tenosynovium surrounding the tendons of the 1st dorsal compartment was debrided with the tenotomy scissors. There were no septae dividing the 1st dorsal compartment. The edges of the retinaculum were resected with the scalpel. The wound was irrigated with normal saline. It was closed with 3-0 Vicryl deep and 3-0 Monocryl in a subcuticular fashion. Glue was used to seal the skin. The tourniquet was released. A dry dressing and thumb spica brace were applied. Sponge and needle counts were correct x 2. The patient tolerated the procedure well, there were no apparent complications. They were sent to same day surgery in satisfactory condition. Plan: Use of the hand as tolerates. Discontinue the intraoperative dressing on postoperative day 3 and may get the wound wet as tolerates. Follow up in the office in 1-2 weeks for a wound check.
== END 2023-04-11 08:27 | disposition home or self-care (01) ==
PROVIDERS: PCP Family Medicine; Visit Provider Orthopaedic Surgery
PROC: (CPT 25000; principal; 2023-04-11 07:15)
DX: M65.4 Radial styloid tenosynovitis [de Quervain] (principal)
CPT/HCPCS: 25000; J0665; J0690; J7120

== ENCOUNTER 2023-08-14 06:57 | Day surgery (SDC) | payer OTHER, SELFPAY ==
[2023-08-14 07:03] VITALS: BP 154/78; PULSE 75; RESP 20; TEMP 36.9; O2SAT 100; BMI 35.9
--- NOTE | 2023-08-14 07:21 | ED.GENADULT ---
HPI - General Adult General Chief complaint: Skin/Abscess/Foreign Body Stated complaint: sore on vagina Time Seen by Provider: 08/14/23 07:20 History of Present Illness HPI narrative: CC: Sore on Clitoris pt. with sore on clitoris for last 2 days. has had this happen before. denies fevers, n/v, diarrhea. 43-year-old woman presenting to the emergency department with concern of sore next to her clitoris. She has had sores before. Usually deals with them on her own, popping them, maybe with a pin. Sometimes has popped them. This one though is in area that is far too sensitive to deal with; ?higher? than usual. No drainage or fever. No noted trauma otherwise. No history of axillary inguinal cysts otherwise. Does smoke. Related Data Previous Rx's Medication Instructions Recorded albuterol sulfate 90 mcg/actuation 2 puff inhalation QID PRN 08/29/22 aerosol inhaler shortness of breath or wheezing #8.5 grams fluticasone 250 mcg-salmeterol 50 1 inh inhalation BID #60 ea 08/29/22 mcg/dose blistr powdr for inhalation (Advair Diskus) Allergies Allergy/AdvReac Type Severity Reaction Status Date / Time nitrofurantoin Allergy Severe Swelling Verified 08/14/23 07:07 [From Macrobid] of Lip/Tongue/Throat adhesive tape Allergy Mild Rash Verified 08/14/23 07:07 Review of Systems Status of ROS: Reports: 6 or more systems reviewed and unremarkable except as noted in History and below [facility] Medical History GERD (gastroesophageal reflux disease) ?K21.9 - Gastro-esophageal reflux disease without esophagitis (ICD-10) History of abnormal cervical Pap smear (07/13/20) ?Z87.42 - Personal history of other diseases of the female genital tract (ICD-10) Chronic constipation ?K59.09 - Other constipation (ICD-10) Seasonal allergies ?J30.2 - Other seasonal allergic rhinitis (ICD-10) Anxiety ?F41.9 - Anxiety disorder, unspecified (ICD-10) Thyroid nodule ?E04.1 - Nontoxic single thyroid nodule (ICD-10) History of kidney stones ?Z87.442 - Personal history of urinary calculi (ICD-10) Chronic pain syndrome ?G89.4 - Chronic pain syndrome (ICD-10) Insomnia ?G47.00 - Insomnia, unspecified (ICD-10) Overactive bladder ?N32.81 - Overactive bladder (ICD-10) History of drug overdose ?Z91.89 - Other specified personal risk factors, not elsewhere classified (ICD-10) History of methamphetamine abuse ?F15.11 - Other stimulant abuse, in remission (ICD-10) Major depression, recurrent ?F33.9 - Major depressive disorder, recurrent, unspecified (ICD-10) COPD (chronic obstructive pulmonary disease) ?J44.9 - Chronic obstructive pulmonary disease, unspecified (ICD-10) Surgical History Status post de Quervain's release surgery (04/11/23) ?Z98.890 - Other specified postprocedural states (ICD-10) History of appendectomy ?Z90.49 - Acquired absence of other specified parts of digestive tract (ICD-10) History of female sterilization ?Z98.890 - Other specified postprocedural states (ICD-10) History of hysterectomy (08/10/20) ?Z90.710 - Acquired absence of both cervix and uterus (ICD-10) History of bladder surgery (01/01/20) ?Z98.890 - Other specified postprocedural states (ICD-10) Hx of total hip arthroplasty ?Z96.649 - Presence of unspecified artificial hip joint (ICD-10) Family History Mother Rheumatoid arthritis High blood pressure Ovarian cancer, Onset Age: 45 Psychiatric disorder Sister Diabetes Hypothyroidism Ovarian cancer Asthma Breast cancer, Onset Age: 38 Psychiatric disorder Thyroid disease 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: , 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, 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 NAD, at least resting still in bed. Breathing easily. Smell of cigarette smoke Abdomen soft nontender. Returned with clay structure builder and servicer for genitourinary exam. There is a 2 cm swelling without notable inflammatory change left of the clitoris; really involving more the clitoral bryant. Subtle purpling centrally and the dot of pointing? a little more superiorly. No inflammatory changes or drainage noted. Exquisitely sensitive. Too sensitive to evaluate really for fluctuance or areas of spread. Const: Vital Signs, click to edit/add: Vital Signs - 24 hr 08/14/23 07:03 Temperature 98.4 F Pulse Rate [Right Pulse Oximeter] 75 Respiratory Rate 20 Blood Pressure [Ri ght Upper Arm] 154/78 H Pulse Oximetry 100 Oxygen Delivery Me thod Room Air Documenting provider has reviewed patient's vital signs: yes Course Vital Signs Vital signs: Initial Vital Signs Temperature 98.4 F 08/14/23 07:03 Temperature Source Temporal Artery Scan 08/14/23 07:03 Pulse Rate 75 08/14/23 07:03 Respiratory Rate 20 08/14/23 07:03 Blood Pressure 154/78 H 08/14/23 07:03 Blood Pressure Mean 103 08/14/23 07:03 Blood Pressure Position Sitting 08/14/23 07:03 Pulse Oximetry 100 08/14/23 07:03 Oxygen Delivery Method Room Air 08/14/23 07:03 Vital Signs Temperature 98.4 F 08/14/23 07:03 Pulse Rate 75 08/14/23 07:03 Respiratory Rate 20 08/14/23 07:03 Blood Pressure 154/78 H 08/14/23 07:03 Pulse Oximetry 100 08/14/23 07:03 Oxygen Delivery Method Room Air 08/14/23 07:03 Temperature 98.4 F 08/14/23 07:03 Pulse Rate 75 08/14/23 07:03 Respiratory Rate 20 08/14/23 07:03 Blood Pressure 154/78 H 08/14/23 07:03 Pulse Oximetry 100 08/14/23 07:03 Oxygen Delivery Method Room Air 08/14/23 07:03 Medical Decision Making MDM Narrative Medical decision making narrative: Seems an unusual location for Bartholin's gland cyst. Seems to be a cystic structure of some sort. Does not have inflammatory changes that I would normally associate with an abscess but certainly this is possible. Have discussed this case with OBGYN who arrived and also examined. Due to location and sensitivity recommendations are to go to the OR for further exploration and drainage. Medical Records Medical records reviewed: Yes I reviewed the patient's medical records Discharge Plan Discharge Clinical Impression: Labial cyst Patient Disposition: XFER to OR Condition: Stable Prescriptions: No Action fluticasone propion-salmeterol [Advair Diskus] 250-50 mcg/dose blister with device 1 inh inhalation BID Qty: 60 2RF albuterol sulfate 90 mcg/actuation HFA aerosol inhaler 2 puff inhalation QID PRN (Reason: shortness of breath or wheezing) Qty: 8.5 5RF Follow Up/Referrals: Jorge Alberto Mora MD [Primary Care Provider] -
--- NOTE | 2023-08-14 08:48 | P.GYNCN_ITS ---
VISITOR SERVICES ASSOCIATE - CN: HPI Data of Consult Time Seen by Provider: 08:49 Date Seen: 08/14/23 Patient: [facility] Patient Consult date: 08/14/23 Primary Care Provider: Jorge Alberto Mora MD Consult Narrative Narrative: Shanika Rhodes is a 43 year old P4 female seen for evaluation of periclitoral lesion and pain. 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 Medical history notable for tobacco use disorder (30 pack year history), COPD, asthma, GERD, constipation, history of kidney stones and anxiety. Shanika presented to the ED with severe periclitoral pain. Gynecology consult was requested. She notes onset of discomfort on 08/10, where she first noted soreness with wiping after urination. She notes her pain has increased through time, with new onset of a bump yesterday. Today, she awoke to severe pain and swelling making it impossible for her to wipe. She notes pain is exacerbated with walking or sitting, intolerable. At rest, pain is 8/10 in severity but is a 12/10 with pressure on the area. She is not sexually active, denies any abnormal vaginal discharge, itching/burning. No STI concerns. She is s/p hysterectomy, no bleeding. She denies any known skin rash/lesion, nausea/vomiting, fevers/chills. She notes things were messed up down there with her previous surgeries, where she has intermittent vulvar lesions/abscess since. She has not had one in the periclitoral region previously. Last was >1 year ago, where her partner lanced this at home with a pin. Past medical history: tobacco use disorder (30 pack year history), COPD, asthma, GERD, constipation, history of kidney stones and anxiety. Past surgical history: TLH, uretral sling, appendectomy, R SONDRA Social history: Active tobacco use, 1 pack per day. She has tried everything to quit, politely declined follow up with PCP for smoking cessation therapy/medication. She uses THC as well. Remainder as below. cc:: CC: [facility] Medical History GERD (gastroesophageal reflux disease) ?K21.9 - Gastro-esophageal reflux disease without esophagitis (ICD-10) History of abnormal cervical Pap smear (07/13/20) ?Z87.42 - Personal history of other diseases of the female genital tract (ICD-10) Chronic constipation ?K59.09 - Other constipation (ICD-10) Seasonal allergies ?J30.2 - Other seasonal allergic rhinitis (ICD-10) Anxiety ?F41.9 - Anxiety disorder, unspecified (ICD-10) Thyroid nodule ?E04.1 - Nontoxic single thyroid nodule (ICD-10) History of kidney stones ?Z87.442 - Personal history of urinary calculi (ICD-10) Chronic pain syndrome ?G89.4 - Chronic pain syndrome (ICD-10) Insomnia ?G47.00 - Insomnia, unspecified (ICD-10) Overactive bladder ?N32.81 - Overactive bladder (ICD-10) History of drug overdose ?Z91.89 - Other specified personal risk factors, not elsewhere classified (ICD-10) History of methamphetamine abuse ?F15.11 - Other stimulant abuse, in remission (ICD-10) Major depression, recurrent ?F33.9 - Major depressive disorder, recurrent, unspecified (ICD-10) COPD (chronic obstructive pulmonary disease) ?J44.9 - Chronic obstructive pulmonary disease, unspecified (ICD-10) Surgical History Status post de Quervain's release surgery (04/11/23) ?Z98.890 - Other specified postprocedural states (ICD-10) History of appendectomy ?Z90.49 - Acquired absence of other specified parts of digestive tract (ICD- 10) History of female sterilization ?Z98.890 - Other specified postprocedural states (ICD-10) History of hysterectomy (08/10/20) ?Z90.710 - Acquired absence of both cervix and uterus (ICD-10) History of bladder surgery (01/01/20) ?Z98.890 - Other specified postprocedural states (ICD-10) Hx of total hip arthroplasty ?Z96.649 - Presence of unspecified artificial hip joint (ICD-10) Family History Mother Rheumatoid arthritis High blood pressure Ovarian cancer, Onset Age: 45 Psychiatric disorder Sister Diabetes Hypothyroidism Ovarian cancer Asthma Breast cancer, Onset Age: 38 Psychiatric disorder Thyroid disease 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: , 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, 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, 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 What tobacco products do you use: cigarettes Smoking packs per day: 1 Smoking cigarettes per day: 20.0 Years smoked: 30 Smoking pack-years: 30.00 Do you use any of these nicotine containing products: None Second hand tobacco smoke exposure: No How often do you have a drink containing alcohol: never AUDIT-C Alcohol total score: 0 Non-prescribed substance use: marijuana (any form) Little interest or pleasure in doing things: several days Feeling down, depressed, or hopeless: nearly every day service: No Meds Home Medications and Allergies Allergies Allergy/AdvReac Type Severity Reaction Status Date / Time nitrofurantoin Allergy Severe Swelling Verified 08/14/23 07:07 [From Macrobid] of Lip/Tongue/Throat adhesive tape Allergy Mild Rash Verified 08/14/23 07:07 VISITOR SERVICES ASSOCIATE - Exam Physical Exam: Vital signs: Temp Pulse Resp BP Pulse Ox O2 Del Method 98.4 F 75 20 154/78 H 100 Room Air 08/14/23 07:03 08/14/23 07:03 08/14/23 07:03 08/14/23 07:03 08/14/23 07:03 08/14/23 07:03 Narrative: General: Alert and oriented, in moderate distress due to pain Abdomen: Soft, non-tender and non-distended. No rebound/guarding. Pelvic: External genital exam notable for apparent 2.5cmx2.5cm mass of the left clitoral bryant to labia. Mildly erythematous, tiny purple spot overlying possibly representing inflamed hair follicle. Unable to digitally palpate mass due to significant pain. Reminder of external genital exam within normal limits. Assessment and Plan Assessment and plan (1) Labial cyst: Status: Acute (2) COPD (chronic obstructive pulmonary disease): Status: Chronic (3) Tobacco use: Status: Acute Plan Ms. Rhodes is a 43yo P4 seen for severe left periclitoral/labial pain with 2.5cm mass. Gynecologic history notable for prior TLH and urethral sling. Past medical history of tobacco use disorder (30 pack year history), COPD, asthma, GERD, constipation, history of kidney stones and anxiety. Shanika has a 2.5cm left clitoral bryant to labial lesion, with mild associated erythema and exquisite tenderness. Physical exam unable to be completed due to severe pain. Plan to proceed to the operating room for exam under anesthesia and proceed as indicated. We discussed possibilities would include incision and drainage, cyst excision and possible biopsy. Plan to proceed with CBC, type and screen and hemoglobin A1c. Explained that diabetes would put her at risk for vulvar abscess. That said, certainly her tobacco use disorder is a significant risk factor that is likely contributing. I strongly recommend she consider smoking cessation to prevent future recurrences and for postoperative healing. Offered referral back to primary care provider, patient politely declined. We discussed symptomatic management postoperatively including Tylenol and a small course of oral narcotics. Patient notes she is unable to tolerate ibuprofen secondary to hematuria. We discussed risks of surgery including bleeding, infection, damage to surrounding structures. Written consent obtained. Plan perioperative Ancef. I am highly suspicious for infection given her significant pain and mild erythema, where I explained that I will likely leave the incision open for further drainage. All questions answered. Postoperative restrictions reviewed.
[2023-08-14 08:59] LABS: Basophils Percent Auto 0.3 % (0.0-3.0); Eosinophils Percent Auto 1.4 % (0.0-7.0); Hematocrit 45.7 % (33.0-51.0); Hemoglobin* 14.8 gm/dL (12.0-16.0); Immature Granulocytes Pct Auto 0.1 %; Lymphocytes Percent Auto 29.5 % (20-44); Mean Corpuscular HGB Conc 32 gm/dL (32-36); Mean Corpuscular Hemoglobin 30 pg (26-34); Mean Corpuscular Volume 93 fL (80-100); Monocytes Percent Auto 5.6 % (0.0-11.0); Neutrophils Percent Auto 63.1 % (42.0-72.0); Platelet Count* 301 K/uL (140-440); RDW Coefficient of Variation % 13.7 % (11.5-15.5); Red Blood Count 4.91 m/uL (4.00-5.20); White Blood Count* 13.48 K/uL (4.50-11.00)
[2023-08-14 09:04] LABS: Slide Review Reflex No
[2023-08-14] MEDS: CEFAZOLIN 2 GM INJ IVP (09:04)
[2023-08-14] MEDS: HYDROmorphone 0.5 mg/0.5 ml inj 1 MG IVP (09:04)
[2023-08-14 09:13] VITALS: BP 140/119; PULSE 52; RESP 14; O2SAT 97
[2023-08-14] MEDS: LACTATED RINGERS 1000 ML 1,000 ML 35 ML IV (09:15)
[2023-08-14 09:24] LABS: Hemoglobin A1C* 5.4 % (0-5.6)
[2023-08-14 09:32] VITALS: PULSE 53; RESP 14; O2SAT 99
[2023-08-14 09:54] VITALS: BP 155/80; PULSE 78; RESP 16; TEMP 36.7; O2SAT 99; BMI 36.7
[2023-08-14] MEDS: SODIUM CHLORIDE 0.9 % (FLUSH) 10 ML SYRINGE IVF (10:03)
[2023-08-14] MEDS: BUPIVACAINE 0.5 %/EPI 1:200K 30 ML INJECTION (11:17)
--- NOTE | 2023-08-14 11:23 | W.PM.GYNPROC ---
Procedure Note Time Seen by Provider: 11:35 Date of procedure: 08/14/23 Will [facility] bill your pro fee for this procedure?: Yes Pre-op diagnosis: Vulvar lesion, suspected abscess Post-op diagnosis: Vulvar abscess Procedure: Exam under anesthesia, incision and drainage Anesthesia: MAC and local Complications: None Surgeon: Ghulam Wasserman MD Estimated blood loss (mL): 5 IV fluids (mL): 500 Urine Output (mL): 200 Pathology: other (Wound culture sent) Condition: stable Disposition: same day Findings: 2.5 cm left anterior vulvar abscess, abutting clitoral bryant Otherwise unremarkable external genital exam Unremarkable digital vaginal exam, cervix/uterus surgically absent Procedure Description: Procedure in detail: Patient was taken to the operating room with IV running. She was positioned in dorsal lithotomy position with her legs fully supported in Yellofin stirrups. Monitored anesthesia care was administered. She was prepped and draped in the usual sterile fashion. She received 2 g of Ancef in preoperative prophylaxis. Exam under anesthesia was performed for the above-noted findings. When labia were parted to proceed with in and out catheterization, purulent fluid was noted to spontaneously drain from the left anterior vulvar lesion. Urethra was re-prepped with betadine swab x2, then in/out catheterization was performed with return of 200mL urine. Further fluid was readily expressed from the abscess cavity, collected and sent for culture. A 15 blade was utilized to create an incision starting at the area of spontaneous expression. No discrete rash or lesion was identified. Total incision was 7mm in length, where purulent fluid freely drained. Abscess cavity was probed, noted to be 1.5cm in depth and width without extension. Single digit vaginal exam was performed, no extension vaginally was noted. Edges of incision were grasped, where no underlying mass/lesion or exudate was noted that required debridement/biopsy. Abscess cavity was copiously irrigated with warm normal saline. Hemostasis was assured with gentle pressure and electrocautery. Copious irrigation was again performed. Incision into abscess cavity was intentionally left open to facilitate drainage. Excellent hemostasis was noted. Surgical debrief completed. Proceed was well tolerated. EBL 5mL, UOP 200mL, IVF 500mL. No specimen sent, wound culture sent. She was taken to recovery area in stable condition.
--- NOTE | 2023-08-14 11:34 | P.ANES_ITS ---
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
[2023-08-14 11:35] VITALS: BP 158/77; PULSE 75; RESP 16; TEMP 36.7; O2SAT 99
--- NOTE | 2023-08-14 11:36 | W.ANESCHARGE ---
Anesthesia Charges Start Date/Time Anesthesia Start Date: 08/14/23 Anesthesia Start Time: 10:50 Stop Date/Time Anesthesia Stop Date: 08/14/23 Anesthesia Stop Time: 11:33 Summary Emergency: MDA
[2023-08-14 11:45] VITALS: BP 155/77; PULSE 77; RESP 16; O2SAT 99
== END 2023-08-14 11:55 | disposition home or self-care (01) ==
LOC: ED 08:54 → SS 09:45
PROVIDERS: Emergency Provider Family Medicine; PCP Family Medicine; Visit Provider Obstetrics & Gynecology
PROC: (CPT 56740; principal; 2023-08-14 10:30)
DX: N76.4 Abscess of vulva (principal); R10.2 Pelvic and perineal pain; J44.9 Chronic obstructive pulmonary disease, unspecified; K21.9 Gastro-esophageal reflux disease without esophagitis; F15.11 Other stimulant abuse, in remission; Z90.710 Acquired absence of both cervix and uterus; F17.210 Nicotine dependence, cigarettes, uncomplicated
CPT/HCPCS: 56405; 00940; 36415; 83036; 85025; 86850; 86900; 86901; 87070; 87075; 87186; 87205; 99140; 99284; 99285; J0690; J1170; J2250; J2405; J2704; J3010; J3490; J7120

== ENCOUNTER 2023-09-29 13:49 | Emergency (ER) | payer OTHER, SELFPAY ==
[2023-09-29 13:53] VITALS: BP 161/116; PULSE 70; RESP 18; TEMP 36.2; O2SAT 97; BMI 35.4
--- NOTE | 2023-09-29 14:21 | ED.GENADULT ---
HPI - General Adult General Chief complaint: Extremity Pain/Injury, Upper Stated complaint: right shoulder pain Time Seen by Provider: 09/29/23 13:50 Source: patient Mode of arrival: ambulatory Limitations: no limitations History of Present Illness HPI narrative: 43-year-old female coming in today complaining of right shoulder pain. Patient states that she has a frozen shoulder on that side and has little movement to begin with. States that she was playing tug-of-war with her dog yesterday when she felt a ripping sensation of her shoulder. She has been in 10/10 pain ever since. She states that she took some Tylenol today and that Tylenol does not help. She states that she cannot take ibuprofen, she states it has something to do with her kidneys. However, patient denies having any kidney disease. The pain is located everywhere, anterior, lateral, posterior shoulder, radiates to the neck and down the lateral ribs. Pain is constant, nothing makes it better, the slightest movement can make it worse. Related Data Home Medications ?Medication ?Instructions ?Recorded ?Confirmed oxybutynin chloride 10 mg 10 mg PO DAILY 08/14/23 09/29/23 tablet,extended release 24 hr Previous Rx's ?Medication ?Instructions ?Recorded albuterol sulfate 90 mcg/actuation 2 puff inhalation QID PRN 08/29/22 aerosol inhaler shortness of breath or wheezing #8.5 grams fluticasone 250 mcg-salmeterol 50 1 inh inhalation BID #60 ea 08/29/22 mcg/dose blistr powdr for inhalation (Advair Diskus) sulfamethoxazole 800 1 tab PO BID #10 tabs 08/14/23 mg-trimethoprim 160 mg tablet tramadol 50 mg tablet 50 mg PO Q6H PRN pain #5 tabs 08/14/23 ketorolac 10 mg tablet 10 mg PO TID PRN pain 5 days #15 09/29/23 tabs Allergies Allergy/AdvReac Type Severity Reaction Status Date / Time nitrofurantoin Allergy Severe Swelling Verified 09/29/23 14:00 [From Macrobid] of Lip/Tongue/Throat adhesive tape Allergy Mild Rash Verified 09/29/23 14:00 Review of Systems Status of ROS: Reports: 6 or more systems reviewed and unremarkable except as noted in History and below [facility] Medical History GERD (gastroesophageal reflux disease) ?K21.9 - Gastro-esophageal reflux disease without esophagitis (ICD-10) History of abnormal cervical Pap smear (07/13/20) ?Z87.42 - Personal history of other diseases of the female genital tract (ICD-10) Chronic constipation ?K59.09 - Other constipation (ICD-10) Seasonal allergies ?J30.2 - Other seasonal allergic rhinitis (ICD-10) Anxiety ?F41.9 - Anxiety disorder, unspecified (ICD-10) Thyroid nodule ?E04.1 - Nontoxic single thyroid nodule (ICD-10) History of kidney stones ?Z87.442 - Personal history of urinary calculi (ICD-10) Chronic pain syndrome ?G89.4 - Chronic pain syndrome (ICD-10) Insomnia ?G47.00 - Insomnia, unspecified (ICD-10) Overactive bladder ?N32.81 - Overactive bladder (ICD-10) History of drug overdose ?Z91.89 - Other specified personal risk factors, not elsewhere classified (ICD-10) History of methamphetamine abuse ?F15.11 - Other stimulant abuse, in remission (ICD-10) Major depression, recurrent ?F33.9 - Major depressive disorder, recurrent, unspecified (ICD-10) COPD (chronic obstructive pulmonary disease) ?J44.9 - Chronic obstructive pulmonary disease, unspecified (ICD-10) Surgical History Status post de Quervain's release surgery (04/11/23) ?Z98.890 - Other specified postprocedural states (ICD-10) History of appendectomy ?Z90.49 - Acquired absence of other specified parts of digestive tract (ICD-10) History of female sterilization ?Z98.890 - Other specified postprocedural states (ICD-10) History of hysterectomy (08/10/20) ?Z90.710 - Acquired absence of both cervix and uterus (ICD-10) History of bladder surgery (01/01/20) ?Z98.890 - Other specified postprocedural states (ICD-10) Hx of total hip arthroplasty ?Z96.649 - Presence of unspecified artificial hip joint (ICD-10) Family History Mother Rheumatoid arthritis High blood pressure Ovarian cancer, Onset Age: 45 Psychiatric disorder Sister Diabetes Hypothyroidism Ovarian cancer Asthma Breast cancer, Onset Age: 38 Psychiatric disorder Thyroid disease 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: , 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, 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, 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 What tobacco products do you use: cigarettes Smoking packs per day: 1 Smoking cigarettes per day: 20.0 Years smoked: 30 Smoking pack-years: 30.00 Do you use any of these nicotine containing products: None Second hand tobacco smoke exposure: No How often do you have a drink containing alcohol: never AUDIT-C Alcohol total score: 0 Non-prescribed substance use: marijuana (any form) Little interest or pleasure in doing things: several days Feeling down, depressed, or hopeless: nearly every day service: No Exam Narrative: Exam Narrative: Well-nourished well-developed patient in moderate distress, breathing hard and exhaling through pursed lips. Grimacing. Alert and oriented. Patient speaks in full sentences without needing to catch their breath. HEENT: Normocephalic atraumatic. Pupils are equally round reactive to light. Extraocular muscles are intact. Conjunctivae are moist without any icterus noted. Moist mucous membranes. Posterior pharynx is normal. Neck is soft without any lymphadenopathy or thyromegaly. No masses are appreciated. Extremities: Shoulder has normal appearance. There is no swelling, erythema. There is no bruising noted. Normal contour of the shoulder is noted. Patient has almost no range of motion because she states that she is in too much pain. She has fairly normal passive range of motion, I can elevate the shoulder, adduct and abduct across the body, elevate above 90? and she seems to tolerate that. Any time that I gently touch anywhere on the shoulder, laterally, anterior or posterior with gentle touch of just the skin patient grimaces in pain and moans. Const: Vital Signs, click to edit/add: Vital Signs - 24 hr 09/29/23 13:53 Temperature 97.2 F L Pulse Rate [Pulse Oximeter] 70 Respiratory Rate 18 Blood Pressure [Ri ght Forearm] 161/116 H Pulse Oximetry 97 Oxygen Delivery Me thod Room Air Course Course ED Course: We discussed pain management: Specifically Toradol. Patient states that she can have that. We discussed that this also is metabolized by the kidneys and she states that she has no problems taking Toradol. Therefore IM Toradol was given in the ED today patient was placed in a sling. Do not think that an x-ray is going to give us any useful information as I do not believe she has any bony fractures. Patient was placed in a sling, instructed to follow-up outpatient in approximately 1 week. Of note, I did look at her past diagnostics - patient appears to have normal renal function. Vital Signs Vital signs: Initial Vital Signs Temperature 97.2 F L 09/29/23 13:53 Temperature Source Temporal Artery Scan 09/29/23 13:53 Pulse Rate 70 09/29/23 13:53 Respiratory Rate 18 09/29/23 13:53 Blood Pressure 161/116 H 09/29/23 13:53 Blood Pressure Mean 131 H 09/29/23 13:53 Blood Pressure Position Sitting 09/29/23 13:53 Pulse Oximetry 97 09/29/23 13:53 Oxygen Delivery Method Room Air 09/29/23 13:53 Vital Signs Temperature 97.2 F L 09/29/23 13:53 Pulse Rate 70 09/29/23 13:53 Respiratory Rate 18 09/29/23 13:53 Blood Pressure 161/116 H 09/29/23 13:53 Pulse Oximetry 97 09/29/23 13:53 Oxygen Delivery Method Room Air 09/29/23 13:53 Temperature 97.2 F L 09/29/23 13:53 Pulse Rate 70 09/29/23 13:53 Respiratory Rate 18 09/29/23 13:53 Blood Pressure 161/116 H 09/29/23 13:53 Pulse Oximetry 97 09/29/23 13:53 Oxygen Delivery Method Room Air 09/29/23 13:53 Medical Decision Making MDM Narrative Medical decision making narrative: Shoulder pain. Management per above Discharge Plan Discharge Clinical Impression: Acute shoulder pain Patient Disposition: Home, Self-Care Condition: Stable Additional Instructions: Ice or heat: Whichever feels best. Do not apply ice or heat directly to the skin. Okay to use Toradol as prescribed/as needed. Okay to use Tylenol as needed for discomfort. Recommend using a sling for comfort. Recommend you follow up in the outpatient clinic with your primary care provider in approximately 1 week after some of the pain has improved. This will make it easier for a more comprehensive physical examination and your clinician can order imaging tests as they see fit. Prescriptions: New ketorolac 10 mg tablet 10 mg PO TID PRN (Reason: pain) 5 Days Qty: 15 0RF No Action fluticasone propion-salmeterol [Advair Diskus] 250-50 mcg/dose blister with device 1 inh inhalation BID Qty: 60 2RF albuterol sulfate 90 mcg/actuation HFA aerosol inhaler 2 puff inhalation QID PRN (Reason: shortness of breath or wheezing) Qty: 8.5 5RF oxybutynin chloride 10 mg tablet extended release 24hr 10 mg PO DAILY tramadol 50 mg tablet 50 mg PO Q6H PRN (Reason: pain) Qty: 5 0RF sulfamethoxazole-trimethoprim 800-160 mg tablet 1 tab PO BID Qty: 10 0RF Follow Up/Referrals: Jorge Alberto Mora MD [Primary Care Provider] - Stand Alone Forms: NICO Info Instructions
[2023-09-29] MEDS: KETOROLAC 60 MG/2 ML inj IM (14:28)
== END 2023-09-29 14:46 | disposition home or self-care (01) ==
PROVIDERS: Emergency Provider Family Medicine; PCP Family Medicine
DX: M25.511 Pain in right shoulder (principal); X50.0XXA Overexertion from strenuous movement or load, initial encounter
CPT/HCPCS: 96372; 99283; 99284; J1885

== ENCOUNTER 2023-11-09 10:20 | Emergency (ER) | payer OTHER, SELFPAY ==
[2023-11-09] VITALS (22 sets, daily range): BP systolic 138–207; BP diastolic 84–124; PULSE 53–73; RESP 18; TEMP 36.4; O2SAT 95–100
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
--- NOTE | 2023-11-09 11:15 | CRLHL7_ITS ---
For Patients: As a result of the Century Cures Act, medical imaging exams and procedure reports are released immediately into your electronic medical record. You may view this report before your referring provider. If you have questions, please contact your health care provider. CT HEAD DATE: 11/09/2023 CLINICAL HISTORY: Patient with sudden onset of severe headache. TECHNIQUE: Standard CT scanning of the head was performed. COMPARISON: None. FINDINGS: There is no intracranial hemorrhage. The kaye matter-white matter differentiation is intact. The size of the ventricular system is normal for age. There is no mass effect or midline shift. The calvarium is unremarkable. The orbits are unremarkable. The paranasal sinuses are unremarkable. The mastoid air cells are unremarkable. The soft tissues are unremarkable. IMPRESSION: Normal head CT. Please note that all CT scans at this facility use dose modulation, iterative reconstruction, and/or weight-based dosing when appropriate to reduce radiation dose to as low as reasonably achievable. Dictated by: Marco Antonio Goddard MD @ 11/09/2023 12:07:44 (Electronically Signed)
--- NOTE | 2023-11-09 11:15 | CRLHL7_ITS ---
For Patients: As a result of the Century Cures Act, medical imaging exams and procedure reports are released immediately into your electronic medical record. You may view this report before your referring provider. If you have questions, please contact your health care provider. CT ANGIOGRAM NECK DATE: 11/09/2023 CLINICAL HISTORY: Patient with headache and neck pain. TECHNIQUE: Standard helical CT image acquisition of the neck up to the skull base after bolus intravenous contrast enhancement. 2D and 3D MIP images for post-processing were performed and interpreted on an independent workstation and 3D images were permanently archived. COMPARISON: CT same day. FINDINGS: The origins of the great vessels from the aortic arch are patent. The origin of the right vertebral artery is patent. The origin of the left vertebral artery is patent. The common carotid arteries are patent. There is no stenosis at the origin of the right internal carotid artery. There is no stenosis at the origin of the left internal carotid artery. The rest of the cervical segments of the internal carotid arteries are patent up to the skull base. The left vertebral artery is dominant. The cervical segments of the vertebral arteries are patent up to the skull base. The visualized lung apices are unremarkable. The thyroid gland is unremarkable. The soft tissues of the neck are unremarkable. There are degenerative changes in the cervical spine. IMPRESSION: Patent cervical vasculature. Please note that all CT scans at this facility use dose modulation, iterative reconstruction, and/or weight-based dosing when appropriate to reduce radiation dose to as low as reasonably achievable. Dictated by: Marco Antonio Goddard MD @ 11/09/2023 12:10:17 (Electronically Signed)
--- NOTE | 2023-11-09 11:15 | CRLHL7_ITS ---
For Patients: As a result of the Century Cures Act, medical imaging exams and procedure reports are released immediately into your electronic medical record. You may view this report before your referring provider. If you have questions, please contact your health care provider. CT ANGIOGRAM HEAD DATE: 11/08/2023 CLINICAL HISTORY: Patient with severe headache. TECHNIQUE: Standard helical CT image acquisition through the intracranial circulation following intravenous administration of contrast material with bolus tracking. 2D and 3D MIP images for post-processing were performed and interpreted on an independent workstation and 3D images were permanently archived. COMPARISON: CT same day. FINDINGS: There is no proximal intracranial large vessel occlusion. There is no intracranial aneurysm. The right internal carotid artery is normal. The right middle cerebral artery and its branches are normal. The right anterior cerebral artery and its branches are normal. The left internal carotid artery is normal. The left middle cerebral artery and its branches are normal. The left anterior cerebral artery and its branches are normal. The anterior communicating artery is well visualized and appears normal. The right vertebral artery and PICA are normal. The left vertebral artery and PICA are normal. The left vertebral artery is dominant. The basilar artery is patent and appears normal. The right posterior cerebral artery is normal. The left posterior cerebral artery is normal. The visualized venous structures are patent. IMPRESSION: Patent proximal intracranial vasculature without intracranial aneurysms. Please note that all CT scans at this facility use dose modulation, iterative reconstruction, and/or weight-based dosing when appropriate to reduce radiation dose to as low as reasonably achievable. Dictated by: Marco Antonio Goddard MD @ 11/09/2023 12:12:13 (Electronically Signed)
--- NOTE | 2023-11-09 11:15 | CRLHL7_ITS ---
For Patients: As a result of the Century Cures Act, medical imaging exams and procedure reports are released immediately into your electronic medical record. You may view this report before your referring provider. If you have questions, please contact your health care provider. INDICATION: Dyspnea. Shelly xiphoid chest pain. TECHNIQUE: Chest 2 views. COMPARISON: None. FINDINGS: No pneumothorax or pleural effusion. Lungs are clear. Cardiac and mediastinal contours are within normal limits. Upper abdomen and osseous structures as imaged show no acute abnormality. IMPRESSION: No evidence of acute cardiopulmonary disease. Dictated by Dylon Owens MD @ 11/09/2023 12:19:22 PM (Electronically Signed)
[2023-11-09 11:31] LABS: Appearance Urine Clear (Clear); Bilirubin Urine Negative (Negative); Blood Urine 2+ (Negative); Color Urine Yellow (Yellow); Glucose Urine Negative (Negative); Ketones Urine Negative (Negative); Leukocyte Esterase Urine Negative (Negative); Nitrite Urine Negative (Negative); Protein Urine Negative (Negative); Specific Gravity Urine 1.015 (1.000-1.030); Urobilinogen Urine 0.2 (0.2-1.0)
[2023-11-09 11:40] LABS: Bacteria Urine Few; Squamous Epithelial Cell Urine Few (None-Few); WBC Urine 0-2 (0-5)
[2023-11-09 11:43] LABS: Ur HCG Qualitative* Negative (Negative)
[2023-11-09] MEDS: KETOROLAC 15 MG/ML inj IVP (11:47)
[2023-11-09 11:48] LABS: PCR FLU A Negative PCR FLU A (Negative); PCR FLU B Negative PCR FLU B (Negative); PCR RSV Negative PCR RSV (Negative); SARS PCR* Negative SARS-CoV-2 (Negative)
[2023-11-09 11:57] LABS: Basophils Percent Auto 0.5 % (0.0-3.0); Eosinophils Percent Auto 1.4 % (0.0-7.0); Hematocrit 46.5 % (33.0-51.0); Hemoglobin* 15.5 gm/dL (12.0-16.0); Lymphocytes Percent Auto 24.9 % (20-44); Mean Corpuscular HGB Conc 33 gm/dL (32-36); Mean Corpuscular Hemoglobin 31 pg (26-34); Mean Corpuscular Volume 91 fL (80-100); Monocytes Percent Auto 4.3 % (0.0-11.0); Neutrophils Percent Auto 67.9 % (42.0-72.0); Platelet Count* 326 K/uL (140-440); RDW Coefficient of Variation % 13.5 % (11.5-15.5); Red Blood Count 5.09 m/uL (4.00-5.20); White Blood Count* 12.47 K/uL (4.50-11.00)
[2023-11-09 12:00] LABS: Albumin* 4.5 g/dL (3.3-5.0)
[2023-11-09 12:01] LABS: Chloride* 106 mmol/L (96-114); Potassium* 3.7 mmol/L (3.6-5.1); Sodium* 139 mmol/L (135-149)
[2023-11-09 12:03] LABS: Anion Gap 7 mEq/L (7-15); Aspartate Amino Transferase* 24 U/L (12-35); Bilirubin Total* 0.4 mg/dL (0.1-1.5); Carbon Dioxide* 26 mmol/L (20-32); Creatinine* 0.7 mg/dL (0.5-1.5); Estimated Glomerular Filt Rate 110 ml/min
[2023-11-09 12:04] LABS: Alanine Aminotransferase* 14 U/L (4-35); Alkaline Phosphatase* 68 U/L (40-150); Blood Urea Nitrogen* 7 mg/dL (5-24); Calcium* 8.8 mg/dL (8.4-10.6); Glucose* 91 mg/dL (60-115); Lipase* 358 U/L (23-300); Slide Review Reflex No; Total Protein* 7.6 g/dL (6.0-8.3)
[2023-11-09] MEDS: 0.9 % SODIUM CHLORIDE 1000 ml 1,000 ML IV (12:11)
[2023-11-09] MEDS: METOCLOPRAMIDE HCL 5 MG/ML INJ 10 MG IVP (12:11)
[2023-11-09] MEDS: diphenhydrAMINE 50 MG/ML inj 12.5 MG IVP (12:11)
[2023-11-09 12:36] LABS: Troponin I* < 0.01 ng/mL (0.01-0.04)
--- NOTE | 2023-11-09 13:19 | CRLHL7_ITS ---
For Patients: As a result of the Century Cures Act, medical imaging exams and procedure reports are released immediately into your electronic medical record. You may view this report before your referring provider. If you have questions, please contact your health care provider. INDICATION: Epigastric pain TECHNIQUE: Ultrasound abdomen limited. Sonographic images of the right upper quadrant were obtained using kaye-scale and color Doppler images. COMPARISON: None. FINDINGS: Liver: Mildly echogenic liver. No suspicious masses. No intrahepatic biliary dilatation. Gallbladder: No stones or sludge. Normal wall thickness. No pericholecystic fluid. Common bile duct: 4 mm. Pancreas: Unremarkable, though tail is not well seen due to bowel gas. Right kidney: Normal in size. Normal echotexture and cortex. No suspicious masses, stones, or hydronephrosis. Vasculature: Proximal abdominal aorta and IVC are unremarkable. IMPRESSION: Mildly echogenic liver, which can be seen with hepatic steatosis or other parenchymal disease. Dictated by Shannon Johnson MD @ 11/09/2023 2:26:14 PM (Electronically Signed)
== END 2023-11-09 15:35 | disposition home or self-care (01) ==
PROVIDERS: Emergency Provider Emergency Medicine; PCP Family Medicine
DX: R51.9 Headache, unspecified (principal); K85.90 Acute pancreatitis without necrosis or infection, unspecified; R31.9 Hematuria, unspecified
CPT/HCPCS: 36415; 70450; 70496; 70498; 71046; 76705; 80053; 81001; 81025; 83690; 84484; 85025; 87086; 87631; 96374; 96375; 99285; J1200; J1885; J2765; J7030; Q9967

== ENCOUNTER 2023-11-22 19:26 | Emergency (ER) | payer OTHER, SELFPAY ==
[2023-11-22 19:51] VITALS: BP 184/122; PULSE 60; RESP 22; TEMP 37.8; O2SAT 98; BMI 35.4
--- NOTE | 2023-11-24 11:20 | ED_ITS ---
HPI - General Adult General Chief complaint: Unspecified Complaint, Adult Stated complaint: Migraine, elevated BP, dizzy and passing out Time Seen by Provider: 11/22/23 20:20 History of Present Illness HPI narrative: LWBS Related Data Home Medications ?Medication ?Instructions ?Recorded ?Confirmed oxybutynin chloride 10 mg 10 mg PO DAILY 08/14/23 09/29/23 tablet,extended release 24 hr Previous Rx's ?Medication ?Instructions ?Recorded albuterol sulfate 90 mcg/actuation 2 puff inhalation QID PRN 08/29/22 aerosol inhaler shortness of breath or wheezing #8.5 grams fluticasone 250 mcg-salmeterol 50 1 inh inhalation BID #60 ea 08/29/22 mcg/dose blistr powdr for inhalation (Advair Diskus) Allergies Allergy/AdvReac Type Severity Reaction Status Date / Time nitrofurantoin Allergy Severe Swelling Verified 11/16/23 15:28 [From Macrobid] of Lip/Tongue/Throat adhesive tape Allergy Mild Rash Verified 11/16/23 15:28 PFSH [facility] Medical History GERD (gastroesophageal reflux disease) ?K21.9 - Gastro-esophageal reflux disease without esophagitis (ICD-10) History of abnormal cervical Pap smear (07/13/20) ?Z87.42 - Personal history of other diseases of the female genital tract (ICD-10) Chronic constipation ?K59.09 - Other constipation (ICD-10) Seasonal allergies ?J30.2 - Other seasonal allergic rhinitis (ICD-10) Anxiety ?F41.9 - Anxiety disorder, unspecified (ICD-10) Thyroid nodule ?E04.1 - Nontoxic single thyroid nodule (ICD-10) History of kidney stones ?Z87.442 - Personal history of urinary calculi (ICD-10) Chronic pain syndrome ?G89.4 - Chronic pain syndrome (ICD-10) Insomnia ?G47.00 - Insomnia, unspecified (ICD-10) Overactive bladder ?N32.81 - Overactive bladder (ICD-10) History of drug overdose ?Z91.89 - Other specified personal risk factors, not elsewhere classified (ICD-10) History of methamphetamine abuse ?F15.11 - Other stimulant abuse, in remission (ICD-10) Major depression, recurrent ?F33.9 - Major depressive disorder, recurrent, unspecified (ICD-10) COPD (chronic obstructive pulmonary disease) ?J44.9 - Chronic obstructive pulmonary disease, unspecified (ICD-10) Surgical History Status post de Quervain's release surgery (04/11/23) ?Z98.890 - Other specified postprocedural states (ICD-10) History of appendectomy ?Z90.49 - Acquired absence of other specified parts of digestive tract (ICD- 10) History of female sterilization ?Z98.890 - Other specified postprocedural states (ICD-10) History of hysterectomy (08/10/20) ?Z90.710 - Acquired absence of both cervix and uterus (ICD-10) History of bladder surgery (01/01/20) ?Z98.890 - Other specified postprocedural states (ICD-10) Hx of total hip arthroplasty ?Z96.649 - Presence of unspecified artificial hip joint (ICD-10) Family History Mother Rheumatoid arthritis High blood pressure Ovarian cancer, Onset Age: 45 Psychiatric disorder Sister Diabetes Hypothyroidism Ovarian cancer Asthma Breast cancer, Onset Age: 38 Psychiatric disorder Thyroid disease 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: , 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, 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, 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 What tobacco products do you use: cigarettes Smoking packs per day: 0.5 Smoking cigarettes per day: 10.0 Years smoked: 30 Smoking pack-years: 15.00 Do you use any of these nicotine containing products: None Second hand tobacco smoke exposure: No How often do you have a drink containing alcohol: never AUDIT-C Alcohol total score: 0 Non-prescribed substance use: marijuana (any form) Little interest or pleasure in doing things: several days Feeling down, depressed, or hopeless: nearly every day service: No Course Vital Signs Vital signs: Initial Vital Signs Temperature 100.1 F H 11/22/23 19:51 Temperature Source Temporal Artery Scan 11/22/23 19:51 Pulse Rate 60 11/22/23 19:51 Respiratory Rate 22 11/22/23 19:51 Blood Pressure 184/122 H 11/22/23 19:51 Blood Pressure Mean 142 H 11/22/23 19:51 Pulse Oximetry 98 11/22/23 19:51 Oxygen Delivery Method Room Air 11/22/23 19:51 Vital Signs Temperature 100.1 F H 11/22/23 19:51 Pulse Rate 60 11/22/23 19:51 Respiratory Rate 22 11/22/23 19:51 Blood Pressure 184/122 H 11/22/23 19:51 Pulse Oximetry 98 11/22/23 19:51 Oxygen Delivery Method Room Air 11/22/23 19:51 Temperature 100.1 F H 11/22/23 19:51 Pulse Rate 60 11/22/23 19:51 Respiratory Rate 22 11/22/23 19:51 Blood Pressure 184/122 H 11/22/23 19:51 Pulse Oximetry 98 11/22/23 19:51 Oxygen Delivery Method Room Air 11/22/23 19:51 Discharge Plan Discharge Patient Disposition: Left Without Being Seen
== END 2023-11-22 20:21 | disposition left against medical advice (07) ==
LOC: ED 20:21
PROVIDERS: Emergency Provider Emergency Medicine; PCP Family Medicine
DX: Z53.21 Procedure and treatment not carried out due to patient leaving prior to being seen by health care provider (principal)
CPT/HCPCS: 99281

== ENCOUNTER 2023-12-18 12:08 | Emergency (ER) | payer OTHER, SELFPAY ==
[2023-12-18] VITALS (16 sets, daily range): BP systolic 162–166; BP diastolic 99–114; PULSE 57–70; RESP 16–20; TEMP 35.6; O2SAT 93–99; BMI 35.4
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
[2023-12-18] MEDS: LORazepam 1 MG TABLET PO (12:56)
[2023-12-18 13:20] LABS: Basophils Percent Auto 0.3 % (0.0-3.0); Eosinophils Percent Auto 0.7 % (0.0-7.0); Hematocrit 45.9 % (33.0-51.0); Hemoglobin* 15.2 gm/dL (12.0-16.0); Immature Granulocytes Pct Auto 0.3 %; Lymphocytes Percent Auto 26.3 % (20-44); Mean Corpuscular HGB Conc 33 gm/dL (32-36); Mean Corpuscular Hemoglobin 31 pg (26-34); Mean Corpuscular Volume 92 fL (80-100); Monocytes Percent Auto 4.4 % (0.0-11.0); Platelet Count* 321 K/uL (140-440); RDW Coefficient of Variation % 13.4 % (11.5-15.5); Red Blood Count 4.97 m/uL (4.00-5.20); White Blood Count* 15.35 K/uL (4.50-11.00)
[2023-12-18 13:24] LABS: Slide Review Reflex No
[2023-12-18 13:41] LABS: Chloride* 104 mmol/L (96-114); Sodium* 139 mmol/L (135-149)
[2023-12-18 13:42] LABS: Potassium* 3.5 mmol/L (3.6-5.1)
[2023-12-18 13:44] LABS: Anion Gap 10 mEq/L (7-15); Blood Urea Nitrogen* 8 mg/dL (5-24); Carbon Dioxide* 25 mmol/L (20-32); Creatinine* 0.8 mg/dL (0.5-1.5); Est. Creatinine Clearance* 94.76; Estimated Glomerular Filt Rate 94 ml/min
[2023-12-18 13:45] LABS: Glucose* 95 mg/dL (60-115)
== END 2023-12-18 15:08 | disposition home or self-care (01) ==
PROVIDERS: Emergency Provider Emergency Medicine Emergency Medical Services; PCP Family Medicine
DX: R07.89 Other chest pain (principal); F41.9 Anxiety disorder, unspecified
CPT/HCPCS: 36415; 80048; 84484; 85025; 93005; 99284; A9270